=== PATIENT | male | born 1985 | race Caucasian/White ===

== ENCOUNTER 2017-12-13 08:29 | Day surgery (SDC) | payer OTHER ==
[2017-12-10 11:20] VITALS: BMI 27.4
[2017-12-13] MEDS ORDERED: VANCOMYCIN 1,000 MG VIAL (RESTRICTED TO ID ONLY) ONE ×2 (09:35→09:37)
[2017-12-13] MEDS ORDERED: MIDAZOLAM HCL 2 MG/2 ML SINGLE DOSE VIAL ONE (10:11)
[2017-12-13] MEDS ORDERED: BUPIVACAINE HCL/PF 2.5 MG/ML - 30 ML VIAL IJ ONE (10:12)
[2017-12-13] MEDS ORDERED: DEXAMETHASONE SOD PHOSPHATE/PF 10 MG/ML SDV ONE (10:12)
[2017-12-13] MEDS ORDERED: BUPIVACAINE HCL/PF (5 MG/ML) 30 ML VIAL IJ ONE (10:12)
[2017-12-13] MEDS ORDERED: oxyCODONE HCL 5 MG TABLET PO PRN ×2 (12:46)
[2017-12-13] MEDS ORDERED: PROMETHAZINE HCL 25 MG/1 ML VIAL IVPUSH PRN (12:46)
[2017-12-13] MEDS ORDERED: ONDANSETRON 4 MG/2 ML VIAL IVPUSH PRN (12:46)
--- NOTE | 2017-12-13 12:48 | OP ---
Operative Note - Note: Operative Date: 12/13/17 Pre-Operative Diagnosis: RIGHT KNEE ACL TEAR Operation: RKA, REVISION ACLR Post-Operative Diagnosis: Same as Pre-op Surgeon: Rashard Au Anesthesia: General Operative Report Dictated: Yes
--- NOTE | 2017-12-13 12:48 | DS ---
Physical Examination Vital Signs: Vital Signs Temperature 98.2 F 12/13/17 09:22 Pulse Rate 59 L 12/13/17 09:22 Respiratory Rate 18 12/13/17 09:22 Blood Pressure 127/76 12/13/17 09:22 O2 Sat by Pulse Oximetry (%) 97 12/13/17 09:22 Discharge Summary Reason For Visit: ANTERIOR CRUCIATE LIGAMENT TEAR, RIGHT KNEE Condition: Good - Instructions Diet, Activity, Other Instructions: Post Operative Instructions: ACL Reconstruction Dr. Rashard Au 1. Pain following an ACL reconstruction is variable and can be significant. Some patients will have more pain than others. You have been provided with a prescription for medication that contains a narcotic. You are not allowed to drive while on this medication. Feel free to take medications such as Ibuprofen or Naprosyn in addition to the pain medicine if you do not have any problems with the NSAID class of medications. YOU WILL TAKE ASPIRIN 81MG TWICE A DAY FOR TWO WEEKS TO DECREASE THE RISK OF BLOOD CLOTS 2. You should not remove the bandages for 72 hours unless directed otherwise. You may shower at that point. You are not allowed to bathe or go swimming until the sutures are removed. Put band-aids on the sutures after your shower and do not put any creams or lotions over the incisions. 3. You are allowed to put 50% of your weight on the leg and bend your knee, however, you should use crutches for assistance. 4. Getting the knee straight is your most important goal during the first 72 hours following an ACL reconstruction. Try not to lie down with a pillow under your knee. Instead the pillow should be under your ankle, thus allowing you to push your knee straight down into the bed. This is a very important milestone to achieve before your first post-surgery visit with me. 5. Swelling around the knee is normal following an ACL reconstruction. 6. The area around the knee and along the front of your le will also become swollen and black and blue. 7. Apply ice to the knee for 15 min every hour or so. You may continue this for as many days as you like. 8. Please call the office to schedule a visit to have your sutures removed. 9. If for any reason you believe you may have an infection or are concerned, please feel free to call me. I can be reached through our office number 24 hours a day. 10. Please call our office with any questions; we will review the surgical findings during your post operative visit. Disposition: HOME - Home Medications Comprehensive Discharge Medication List: Ambulatory Orders Acetylcysteine [A-Cjahvq-u-Cysteine] 600 mg PO DAILY 12/10/17 Alpha Lipoic Acid 600 mg PO DAILY 12/10/17 Atorvastatin Ca [Lipitor] 40 mg PO HS 12/10/17 Baclofen 10 mg PO DAILY 12/10/17 Biotin 5,000 mcg PO DAILY 12/10/17 Cholecalciferol (Vitamin D3) [Vitamin D3] 5,000 unit PO DAILY 12/10/17 Doxycycline Hyclate 100 mg PO HS 12/10/17 Ginkgo Biloba 120 mg PO DAILY 12/10/17 Glatiramer Acetate [Copaxone] 40 mg SQ DAILY 12/10/17 Glucosa Dawn 2Kcl/Chondroitin Dawn [Glucosamine & Chondroitin Cap] 1 each PO DAILY 12/10/17 Huperzine Serrate A 200 mcg PO DAILY 12/10/17 Kelp 1 each PO DAILY 12/10/17 Lamotrigine [Lamictal -] 200 mg PO DAILY 12/10/17 Linoleic Acid 1,000 mcg MC DAILY 12/10/17 Lysine HCl [l-Lysine] 1,000 mg PO DAILY 12/10/17 Milk Thistle 150 mg PO DAILY 12/10/17 [place]-3S/Dha/Epa/Fish Oil [[place]-3 Fish Oil 1,000 mg Sfgl] 1 each PO DAILY 12/10 Ubidecarenone/Vitamin E Mixed [Kdj13-Cch E 100 mg-10 Unit Sfg] 1 each PO DAILY 12/10/17 Vitamin A 10,000 unit PO DAILY 12/10/17 Vitamin K2 2,400 mcg PO DAILY 12/10/17 Zinc Gluconate [Zinc] 25 mg PO DAILY 12/10/17
--- NOTE | 2017-12-13 12:55 | SURG ---
Surgery [employer] Note [employer] Repairer: Juan Pablo Hughes PA-C Date of Service: 12/13/17 Diagnosis: RIGHT KNEE ACL TEAR Procedure: Right knee arthroscopy. revision of acl reconstruction I was present for the entirety of the operative procedure. For further detail, please refer to operative report. Visit type - Case Type Case Type: Scheduled Admission - New patient This patient is new to me today: Yes Date on this admission: 12/13/17
[2017-12-13] MEDS ORDERED: ONDANSETRON 4 MG/2 ML VIAL IVPUSH ONE (12:57)
[2017-12-13 15:04] VITALS: BP 128/76; PULSE 67; TEMP 97.9
--- NOTE | 2017-12-17 16:54 | PATH ---
Surgical Pathology Report Patient Name: PERI SHARMA [facility]. Rec. #: [id number] /Age/Gender: 1985 (Age: 32) / M Account: [id number] Location: [facility] AMBUL[facility] Taken: 12/13/2017 Received: 12/13/2017 Reported: 12/17/2017 Physicians: Rashard Au M.D. Specimen(s) Received SHAVINGS RIGHT KNEE Clinical History Right ACL tear Final Diagnosis RIGHT KNEE, SHAVINGS: FRAGMENTS OF BONE, CARTILAGE, SYNOVIAL TISSUE, AND FIBROCONNECTIVE TISSUE WITH DEGENERATIVE CHANGE. Electronically Signed Afsaneh Pritchard M.D. Gross Description Received in formalin labeled "shavings right knee," is a 3.0 x 1.5 x 0.3 cm aggregate of friend-yellow soft tissue fragments. The formalin is filtered and the specimen is entirely submitted in one cassette. /12/16/201712/16/2017
== END 2017-12-13 15:04 | disposition home or self-care (01) ==
LOC: FASU 08:29
PROVIDERS: ATTEND Orthopaedic Surgery
PROC: 0SBC4ZZ Excision of Right Knee Joint, Percutaneous Endoscopic Approach (ICD-10-PCS; 2017-12-13)
PROC: 0MRN47Z Replacement of Right Knee Bursa and Ligament with Autologous Tissue Substitute, Percutaneous Endoscopic Approach (ICD-10-PCS; principal; 2017-12-13 11:06)
DX: S83.511A Sprain of anterior cruciate ligament of right knee, initial encounter (principal); X58.XXXA Exposure to other specified factors, initial encounter; Y93.9 Activity, unspecified; Y92.9 Unspecified place or not applicable
CPT/HCPCS: 88304-TC; 94760; 97116-GP